=== PATIENT | male | born 1955 | race Caucasian/White ===

== ENCOUNTER 2022-05-28 11:11 | Emergency (ER) | payer MEDICARE, BC ==
[~2022-05-28] VITALS: Ht 175.3 cm; Wt 77.1 kg
--- NOTE | 2022-05-28 11:47 | NUR ---
pt resting comfortably in room 3, waiting for lab results.
[2022-05-28] MEDS ORDERED: ALBU18HF2 INH (12:28)
--- NOTE | 2022-05-28 12:37 | NUR ---
Patient discharged to home in stable condition. Written and verbal after care instructions given. Patient verbalizes understanding of instructions. Stressed follow up or return to ER for worsening s/s.
[2022-05-28] MEDS ORDERED: CIPR7.5D EACH EAR (12:50)
== END 2022-05-28 12:52 | disposition home or self-care (01) ==
LOC: ER 11:17
DX: J06.9 Acute upper respiratory infection, unspecified (principal); H60.91 Unspecified otitis externa, right ear; Z20.822 Contact with and (suspected) exposure to COVID-19
CPT/HCPCS: 71045; 86403; 87400; A4663

== ENCOUNTER 2022-09-25 14:49 | Emergency (ER) | payer MEDICARE, BC ==
[~2022-09-25] VITALS: Ht 175.3 cm; Wt 79.4 kg
[~2022-09-25 14:49] MED LIST: ALBU18HF2 INH; CIPR7.5D EACH EAR
[2022-09-25] MEDS ORDERED: ASPIRIN 325 MG TABLET PO ONE (15:30)
[2022-09-25] MEDS ORDERED: ASPIRIN 325 MG TABLET ONE (15:37)
[2022-09-25 15:40] LABS: HEMATOCRIT 45.9 % (36.7-47.1); MEAN CORPUSCULAR HEMOGLOBIN 30.1 uug (23.8-33.4); MEAN CORPUSCULAR VOLUME 90.7 fL (73.0-96.2); PLATELET COUNT (AUTO) 160 K/uL (152-348)
[2022-09-25 15:45] LABS: CARBON DIOXIDE 29 mmol/L (21-32); CHLORIDE 102 mmol/L (98-107); CREATININE 0.8 mg/dL (0.6-1.3); GLUCOSE 142 mg/dL (74-106); UREA NITROGEN, BLOOD 19 mg/dL (7-18)
[2022-09-25 15:59] LABS: ALANINE AMINOTRANSFERASE 27 U/L (16-63); ALKALINE PHOSPHATASE 62 U/L (50-136); ASPARTATE AMINOTRANSFERASE 15 U/L (15-37); BILIRUBIN,DIRECT 0.1 mg/dL (0.0-0.2); BILIRUBIN,TOTAL 0.4 mg/dL (0.2-1.0)
--- NOTE | 2022-09-25 16:00 | NUR ---
Pt arrived with c/o chest pressure. Seen by Dr. Beal for MSE.
[2022-09-25 18:54] VITALS: BP 124/76
== END 2022-09-25 18:31 | disposition home or self-care (01) ==
LOC: ER 14:52
DX: R07.89 Other chest pain (principal); E78.00 Pure hypercholesterolemia, unspecified; K21.9 Gastro-esophageal reflux disease without esophagitis; I10 Essential (primary) hypertension; Z79.82 Long term (current) use of aspirin; Z86.16 Personal history of COVID-19
CPT/HCPCS: 36415; 71045; 84484; 85025; 93005; A4663